=== PATIENT | female | born 2000 | race Two or more races ===

== ENCOUNTER 2024-09-22 10:39 | Emergency (ER) | payer MEDICAID, OTHER ==
[~2024-09-22] VITALS: Ht 160 cm; Wt 80.1 kg
--- NOTE | 2024-09-22 11:24 | ED.PDOC ---
PHLEBOTOMIST ASSOCIATE HPI Comments 24 y.o female presents to the ED for a chief complaint of vaginal bleeding associated with mild lower abdominal pain that started one day ago. Patient reports 7 weeks gestation, found out x 1 week ago and has not established OB at this time but is looking. Patient described vaginal bleeding as bright red yesterday but brown today with no heaviness or blood clots. Patient denies any fever, chills, back pain, fever, nausea, vomiting. Chief Complaint: Vaginal Bleed Time Seen by MD: 11:05 Reviewed Notes: Nurses Notes, Medications, Allergies Allergies: Coded Allergies: NO KNOWN ALLERGIES (Unverified , 09/22/24) Information Source: Patient Mode of Arrival: Ambulatory Timing: Days (1) Severity: Moderate Vaginal Discharge: None Vaginal Lesions: None Bleeding Quality: Bright Red, Dark Vaginal Mass: None Onset Of Mass/Bleeding: Spontaneous Sexual Activity: Last Consensual Puhi: Unknown Control: None History of: Current Blood Type: Unknown Associated Signs and Symptoms: Abdominal Pain, Cramping Past Medical History PAST MEDICAL HISTORY: Denies Surgical History: Denies all surgeries [employer] History: No Pertinent [employer] History Social History Smoker: Non-Smoker Alcohol: Denies ETOH Use Drugs: Denies Drug Use Lives In: Home Constitutional: denies: chills, diaphoresis, fatigue, fever, malaise, sweats, weakness, others EENTM: denies: blurred vision, double vision, ear bleeding, ear discharge, ear drainage, ear pain, ear ringing, eye pain, eye redness, hearing loss, mouth pain, mouth swelling, nasal discharge, nose bleeding, nose congestion, nose pain, photophobia, tearing, throat pain, throat swelling, voice changes, others Respiratory: denies: cough, hemoptysis, orthopnea, SOB at rest, shortness of breath, SOB with excertion, stridor, wheezing, others Cardiovascular: denies: chest pain, dizzy spells, diaphoresis, Dyspnea on exertion, edema, irregular heart beat, left arm pain, lightheadedness, palpitations, PND, syncope, others Gastrointestinal: reports: abdominal pain; denies: abdomen distended, blood streaked bowels, constipated, diarrhea, dysphagia, difficulty swallowing, hematemesis, melena, nausea, poor appetite, poor fluid intake, rectal bleeding, rectal pain, vomiting, others Genitourinary: reports: abnormal vagina bleeding, ; denies: burning, dyspareunia, dysuria, flank pain, frequency, hematuria, incontinence, pain, vagina discharge, urgency, others Neurological: denies: dizziness, fainting, headache, left sided numbness, left sided weakness, numbness, paresthesia, pre-existing deficit, right sided n umbness, right sided weakness, seizure, speech problems, tingling, tremors, weakness, others Musculoskeletal: denies: back pain, gout, joint pain, joint swelling, muscle pain, muscle stiffness, neck pain, others Integumetry: denies: bruises, change in color, change in hair/nails, dryness, laceration, lesions, lumps, rash, wounds, others Allergic/Immunocompromised: denies: Difficulty Healing, Frequent Infections, Hives, Itching, others Hematologic/Lymphatic: denies: anemia, blood clots, easy bleeding, easy bruising, swollen glands, others Endocrine: denies: excessive hunger, excessive sweating, excessive thirst, excessive urination, flushing, intolerance to cold, intolerance to heat, unexplained weight gain, unexplained weight loss, others Psychiatric: denies: anxiety, bipolar disorder, depression, hopeless, panic disorder, schizophrenia, sleepless, suicidal, others All Other Systems: Reviewed and Negative Physical Exam General Appearance: No Apparent Distress HEENT: Normal ENT Inspection, Pharynx Normal, TMs Normal Neck: Full Range of Motion, Non-Tender, Normal, Normal Inspection Respiratory: Chest Non-Tender, Lungs Clear, No Accessory Muscle Use, No Respiratory Distress, Normal Breath Sounds Cardiovascular: No Edema, No JVD, No Murmur, No Gallop, Normal Peripheral Pulses, Regular Rate/Rhythm Breast Exam: Deferred Gastrointestinal: No Organomegaly, Non Tender, No Pulsatile Mass, Normal Bowel Sounds, Soft Genitalia: Deferred Pelvic: Deferred Rectal: Deferred Extremities: No calf tenderness, Normal capillary refill, Normal inspection, Normal range of motion, Non-tender, No pedal edema Musculoskeletal : Apperance: Normal Neurologic: Alert, deputy city clerk II-XII nml as Tested, No Motor Deficits, Normal Affect, Normal Mood, No Sensory Deficits Cerebellar Function: Normal Reflexes: Normal Skin: Dry, Normal Color, Warm Lymphatic: No Adenopathy Was a procedure done? Was a procedure done?: No Differential Diagnosis ([employer]) Vaginal Bleeding: - Incomplete, - Inevitable, - Missed, - Threatened, Blood Loss Anemia, Cervicitis, Ectopic , Menometrorrhagia, Menstrual Bleeding X-Ray, Labs, Meds, VS Vital Signs Date Time Temp Pulse Resp B/P (MAP) Pulse Ox O2 Delivery O2 Flow Rate FiO2 09/22/24 13:39 61 16 100 Room Air 09/22/24 13:39 98.7 61 16 107/68 (81) 100 98.7 09/22/24 10:39 97.6 75 18 117/75 (89) 100 97.6 Lab Test 09/22/24 11:24 Range/Units Beta HCG, Quantitative 72582.7 H 1.5-4.2 mIU/[place] [address].7 The ultrasound of the pelvis shows: IMPRESSION: Single intrauterine gestational SAC with a sonographic gestational age of 5 weeks 0 days. Possible small subchronic hemorrhage noted. There is no pole or yolk SAC identified at this time, likely due to early gestational age, thereforee, the viability of the cannot be determined. Recommend Hcg trending and follow-up ultrasound in 7-14 days. At this time, the patient is being discharged. Recommend repeat quantitative hCG within the next 2-3 days to assess viable Images Reviewed?: Images reviewed and evaluated by me Time of 1ST Reevaluation: 11:23 Reevaluation 1ST: Unchanged Patient Education/Counseling: Diagnosis, Treatment, Prognosis, Need For Follow Up Family Education/Counseling: No Family Present Departure 1 Departure Time of Disposition: 13:46 Impression: Primary Impression: Threatened Disposition: 01 HOME / SELF CARE / HOMELESS Condition: Fair Discharged With: Self Critical Care Note Critical Care Time?: No Stability Stability form required: No I personally scribed for ANAYELI ARRINGTON MD ([email or web address]) on 09/22/24 at 11:24. Electronically submitted by Regine Huynh ([facility]). ANAYELI ARRINGTON MD Sep 22, 2024 11:24
--- NOTE | 2024-09-22 13:21 | DVH ---
EXAM DESCRIPTION: US OB ULTRASOUND COMP LESS 14WKS CLINICAL HISTORY: pain and bleeding COMPARISON: None TECHNIQUE: Multiple transverse and longitudinal sonograms of the pelvis were obtained utilizing transabdominal a nd transvaginal sonography. FINDINGS: The uterus measures 9.9 X 5.4 X 4.2 cm. A single intrauterine national SAC is identified. The gestati onal SAC measures 1 cm, corresponding to a sonographic gestational age of 5 weeks and 0 days. No feta l pole or yolk SAC identified at this time. Possible small subchronic hemorrhage measuring 5 x 8 x 3 mm. The right ovary measures 2.6 X 2.8 X 1.9 cm and the left ovary measures 3.1 X 1.2 X 2.9 cm. The ovari es are normal in echogenicity and vascularity. No suspicious adnexal lesions. Right ovarian corpus luteum cyst. There is no free fluid. IMPRESSION: Single intrauterine gestational SAC with a sonographic gestational age of 5 weeks 0 days. Possible sm all subchronic hemorrhage noted. There is no pole or yolk SAC identified at this time, likely d ue to early gestational age, thereforee, the viability of the cannot be determined. Recomme nd Hcg trending and follow-up ultrasound in 7-14 days.
[2024-09-22 13:39] VITALS: BP 107/68; PULSE 61; RESP 16; TEMP 98.7; O2SAT 100
[2024-09-22 15:29] LABS: Urine Protein, UAD Negative (Negative)
== END 2024-09-22 14:12 | disposition home or self-care (01) ==
LOC: ER 10:39
DX: O20.0 Threatened abortion (principal); Z3A.01 Less than 8 weeks gestation of pregnancy
CPT/HCPCS: 36415; 76801; 76817; 81001; 84702

== ENCOUNTER 2024-09-25 14:58 | Outpatient (CLI) | payer MEDICAID | END 2024-09-25 17:00 | disposition home or self-care (01) | LOC: LAB 14:58 | DX: O03.9 Complete or unspecified spontaneous abortion without complication (principal) | CPT/HCPCS: 36415; 84144; 84702 ==

== ENCOUNTER 2024-09-30 10:32 | Outpatient (CLI) | payer MEDICAID ==
[2024-09-30 11:38] LABS: Hematocrit 37.8 % (36.0-46.0); Hemoglobin 13.3 g/dL (12.2-16.2); Mean Corpuscular Hemoglobin 31.3 pg (28.0-32.0); Mean Corpuscular Volume 89.4 fL (80.0-100.0); Nucleated Red Blood Cells % 0.1 %
== END 2024-09-30 17:00 | disposition home or self-care (01) ==
LOC: LAB 10:32
DX: O03.9 Complete or unspecified spontaneous abortion without complication (principal)
CPT/HCPCS: 36415; 84144; 84702; 85025

== ENCOUNTER 2024-10-08 08:43 | Outpatient (CLI) | payer MEDICAID ==
[2024-10-08 10:36] LABS: Hematocrit 39.1 % (36.0-46.0); Hemoglobin 13.7 g/dL (12.2-16.2); Mean Corpuscular Hemoglobin 31.1 pg (28.0-32.0); Mean Corpuscular Volume 89.0 fL (80.0-100.0); Nucleated Red Blood Cells % 0.0 %
== END 2024-10-08 17:00 | disposition home or self-care (01) ==
LOC: LAB 08:43
DX: O03.9 Complete or unspecified spontaneous abortion without complication (principal)
CPT/HCPCS: 36415; 84702; 85025

== ENCOUNTER 2024-10-14 15:02 | Outpatient (CLI) | payer MEDICAID | END 2024-10-14 17:00 | disposition home or self-care (01) | LOC: LAB 15:02 | DX: O03.9 Complete or unspecified spontaneous abortion without complication (principal) | CPT/HCPCS: 36415; 84702 ==